=== PATIENT | female | born 1975 | race Caucasian/White ===

== ENCOUNTER 2016-10-07 22:32 | Emergency (ER) | payer OTHER ==
[2016-10-07 22:37] VITALS: BP 157/84; PULSE 78; TEMP 98.2; BMI 35.9
--- NOTE | 2016-10-07 23:02 | PDOC ---
History of Present Illness - General Chief Complaint: Pain, Acute Stated Complaint: LT ARM PAIN Time Seen by Provider: 10/07/16 23:02 Past History - Past Medical History Allergies/Adverse Reactions: Allergies Allergy/AdvReac Type Severity Reaction Status Date / Time amlodipine besylate Allergy Verified 10/07/16 22:34 [[facility]] erythromycin base Allergy Verified 10/07/16 22:34 hydrochlorothiazide Allergy Verified 10/07/16 22:34 morphine Allergy Verified 10/07/16 22:34 Penicillins Allergy Verified 10/07/16 22:34 Sulfa (Sulfonamide Allergy Verified 10/07/16 22:34 Antibiotics) Home Medications: Ambulatory Orders Clonidine HCl [Kapvay] 0.1 mg PO DAILY 04/11/15 Spironolactone 25 mg PO DAILY 04/11/15 Topiramate [Topamax] 50 mg PO DAILY 04/11/15 Albuterol Sulfate Inhaler - [Ventolin HFA Inhaler -] 2 inh IH Q6H #1 inh Ondansetron [Zofran *Odt*] 4 mg SL TID #30 od.tablet 09/09/15 Asthma: Yes HTN: Yes HIV: Yes Psychiatric Problems: Yes (deprssion/ anxiety) - Surgical History Cholecystectomy: Yes GI Surgery: Yes (gastric sleeve) - Immunization History Immunization Up to Date: Yes - Psycho/Social/Smoking Cessation Hx Anxiety: No Suicidal Ideation: No Smoking History: Never smoked Have you smoked in the past 12 months: No Number of Cigarettes Smoked Daily: 0 Hx Alcohol Use: No Drug/Substance Use Hx: No Substance Use Type: None *Physical Exam - Vital Signs Last Vital Signs Temp Pulse Resp BP Pulse Ox 98.2 F 78 18 157/84 98 10/07/16 22:35 10/07/16 22:35 10/07/16 22:35 10/07/16 22:35 10/07/16 22:35
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
== END 2016-10-07 23:48 | disposition home or self-care (01) ==
LOC: JER 22:32
DX: M79.602 Pain in left arm (principal); Y84.8 Other medical procedures as the cause of abnormal reaction of the patient, or of later complication, without mention of misadventure at the time of the procedure; Y82.8 Other medical devices associated with adverse incidents; I10 Essential (primary) hypertension; J45.909 Unspecified asthma, uncomplicated; F41.8 Other specified anxiety disorders; Z21 Asymptomatic human immunodeficiency virus [HIV] infection status
CPT/HCPCS: 99282-25

== ENCOUNTER 2024-07-08 09:22 | Emergency (ER) | payer OTHER ==
[2024-07-08] MEDS ORDERED: FAMOTIDINE 20 MG/50 ML IVPB 20 MG/50 ML MG IVPB ONE (09:53)
[2024-07-08] MEDS ORDERED: METOCLOPRAMIDE HCL INJECTION 10 MG/2 ML VIAL ONE (10:01)
[2024-07-08] MEDS ORDERED: MAG HYDROX/AL HYDROX/SIMETH 30 ML UNIT-DOSE CUP ONE (10:02)
[2024-07-08] MEDS: SODIUM CHLORIDE 0.9% 500 ML INFUS.BAG IV ONE ×2 (10:33→14:50)
[2024-07-08] MEDS: MAG HYDROX/AL HYDROX/SIMETH 30 ML UNIT-DOSE CUP PO ONE (10:33)
[2024-07-08] MEDS ORDERED: HYDROmorphone HCL CARPU-JECT 2 MG/1 ML DISP.SYRIN ONE (10:35)
[2024-07-08] MEDS: HYDROmorphone HCl 2 MG/ML VIAL IVPUSH ONE (10:45)
[2024-07-08] MEDS: METOCLOPRAMIDE HCL INJECTION 10 MG/2 ML VIAL IVPB ONE (10:46)
[2024-07-08 10:56] LABS: HEMATOCRIT 43.9 % (32.4-45.2); HEMOGLOBIN 14.5 GM/dL (10.7-15.3); MCH 24.1 pg (25.7-33.7); MEAN CELL VOLUME 73.1 fl (80-96); MEAN PLT VOLUME 7.5 fl (7.5-11.1); PLATELET COUNT 240 10^3/uL (134-434); RBC 6.01 M/mm3 (3.60-5.2); RDW 15.2 % (11.6-15.6); WHITE BLOOD COUNT 9.4 K/mm3 (4.0-10.0)
[2024-07-08 11:02] VITALS: BP 121/91; PULSE 119; RESP 18; TEMP 98.9; BMI 30.8
[2024-07-08 11:10] LABS: ACTIVATED PTT 29.8 SECONDS (25.2-36.5); INR 1.09 (0.83-1.09)
[2024-07-08 11:19] LABS: POTASSIUM 4.4 mmol/L (3.5-5.1)
[2024-07-08 11:23] LABS: ALBUMIN 4.6 g/dl (3.4-5.0); BLOOD UREA NITROGEN 20.6 mg/dL (7-18); CALCIUM 9.2 mg/dL (8.5-10.1)
[2024-07-08 11:24] LABS: MAGNESIUM 2.1 mg/dL (1.8-2.4)
[2024-07-08 11:26] LABS: CREATININE 0.9 mg/dL (0.55-1.3)
[2024-07-08 11:27] LABS: ANISOCYTOSIS 3+; MACROCYTOSIS 0; OVALOCYTE 1+
[2024-07-08 11:28] LABS: BILIRUBIN,TOTAL 0.7 mg/dL (0.2-1); TOT PROT 8.1 g/dl (6.4-8.2)
[2024-07-08] MEDS ORDERED: ACETAMINOPHEN 325 MG TABLET (FP) ONE (14:41)
[2024-07-08] MEDS: ACETAMINOPHEN 500 MG TABLET (FP) PO ONE (14:49)
[2024-07-08] MEDS: ACETAMINOPHEN 1000 MG/100 ML BAG IVPB ONE (14:50)
[2024-07-08 18:47] LABS: HIV INTERPRETATION NEGATIVE (NEGATIVE)
== END 2024-07-08 16:19 | disposition home or self-care (01) ==
LOC: JER 09:22
PROC: 3E033NZ Introduction of Analgesics, Hypnotics, Sedatives into Peripheral Vein, Percutaneous Approach (ICD-10-PCS; principal; 2024-07-08)
DX: K52.9 Noninfective gastroenteritis and colitis, unspecified (principal); R10.84 Generalized abdominal pain; R42 Dizziness and giddiness; R53.1 Weakness; R11.0 Nausea
CPT/HCPCS: 0241U-QW; 36415; 74177-TC; 80053; 83690; 83735; 84100; 84484; 84703; 85025; 85610; 85730; 86803; 86850; 86900; 86901; 87389; 93005; 93010; 96374; 99285-25; Q9967

== ENCOUNTER 2024-10-10 07:50 | Emergency (ER) | payer OTHER ==
[2024-10-10 08:02] VITALS: BP 133/87; PULSE 82; RESP 20; TEMP 97.9; BMI 31.2
[2024-10-10] MEDS ORDERED: ACETAMINOPHEN 500 MG TABLET (FP) ONE (08:33)
[2024-10-10] MEDS ORDERED: predniSONE 20 MG TABLET (UD) ONE (08:33)
[2024-10-10] MEDS ORDERED: METHOCARBAMOL 500 MG TABLET ONE (08:34)
[2024-10-10] MEDS: ACETAMINOPHEN 500 MG TABLET (FP) PO ONE (08:37)
[2024-10-10] MEDS: METHOCARBAMOL 500 MG TABLET PO ONE (08:38)
[2024-10-10] MEDS: predniSONE 20 MG TABLET (UD) PO ONE (08:40)
== END 2024-10-10 09:35 | disposition home or self-care (01) ==
LOC: JERFT 07:50
DX: S13.4XXA Sprain of ligaments of cervical spine, initial encounter (principal); V49.40XA Driver injured in collision with unspecified motor vehicles in traffic accident, initial encounter
CPT/HCPCS: 72100-TC-FY; 73560-TC-LT-FY; 99284-25